=== PATIENT | male | born 1985 | race Caucasian/White ===

== ENCOUNTER 2016-09-05 16:39 | Emergency (ER) | payer SELFPAY ==
[~2016-09-05] VITALS: Ht 167.6 cm; Wt 78.8 kg
[~2016-09-05 16:39] MED LIST: ACET325T14 PO; ALPR-475 PO; FLUO20CA19 PO; HYDR-3240 PO; HYDR25CA PO; IBUP200T48 PO; PROC25SU25 PR
[2016-09-05 16:43] VITALS: BP 119/81
[2016-09-05] MEDS ORDERED: SODIUM CHLORIDE FLUSH 10ML SYR IVF ONE (19:00)
[2016-09-05] MEDS ORDERED: CLINDAMYCIN PMX 900MG/50ML 50 ML IV ONE (19:00)
== END 2016-09-05 19:20 | disposition home or self-care (01) ==
LOC: ED 19:12
DX: S92.411A Displaced fracture of proximal phalanx of right great toe, initial encounter for closed fracture (principal); S80.211A Abrasion, right knee, initial encounter; L03.115 Cellulitis of right lower limb; V03.19XA Pedestrian with other conveyance injured in collision with car, pick-up truck or van in traffic accident, initial encounter; Y93.89 Activity, other specified; Y92.89 Other specified places as the place of occurrence of the external cause; Y99.8 Other external cause status
CPT/HCPCS: 99284

== ENCOUNTER 2016-10-01 08:58 | Emergency (ER) | payer SELFPAY ==
[~2016-10-01] VITALS: Ht 167.6 cm; Wt 76.0 kg
[2016-10-01] MEDS ORDERED: SODIUM CHLORIDE 0.9% 1,000ML IVBOLUS ONE (10:00)
[2016-10-01] MEDS ORDERED: POTASSIUM CHLORIDE 10% 40 MEQ/30 ML UDC PO ONE (10:00)
[2016-10-01 10:29] VITALS: BP 136/90
== END 2016-10-01 12:47 | disposition home or self-care (01) ==
LOC: ED 09:16
DX: F10.10 Alcohol abuse, uncomplicated (principal); F15.129 Other stimulant abuse with intoxication, unspecified; E86.0 Dehydration; E87.6 Hypokalemia
CPT/HCPCS: 36415; 80047; 96360; 99284; J7030

== ENCOUNTER 2017-04-22 05:50 | Emergency (ER) | payer MEDICAID ==
[~2017-04-22] VITALS: Ht 167.6 cm; Wt 77.0 kg
[~2017-04-22 05:50] MED LIST changes: -IBUP200T48 PO; +IBUP200T49 PO
[2017-04-22 05:52] VITALS: BP 134/91
== END 2017-04-22 06:31 | disposition home or self-care (01) ==
LOC: ED 06:15
DX: F41.1 Generalized anxiety disorder (principal)
CPT/HCPCS: 99284

== ENCOUNTER 2017-04-27 02:39 | Emergency (ER) | payer MEDICAID ==
[~2017-04-27] VITALS: Ht 167.6 cm; Wt 70.9 kg
[2017-04-27 02:40] VITALS: BP 120/90
== END 2017-04-27 04:24 | disposition home or self-care (01) ==
LOC: ED 03:01
DX: F41.1 Generalized anxiety disorder (principal); F15.10 Other stimulant abuse, uncomplicated; F10.129 Alcohol abuse with intoxication, unspecified; F32.9 Major depressive disorder, single episode, unspecified; F41.0 Panic disorder [episodic paroxysmal anxiety]
CPT/HCPCS: 99284

== ENCOUNTER 2017-04-27 23:45 | Emergency (ER) | payer BC, MEDICAID ==
[~2017-04-27] VITALS: Ht 167.6 cm; Wt 69.9 kg
[2017-04-27 23:55] VITALS: BP 136/94
== END 2017-04-28 00:27 | disposition home or self-care (01) ==
LOC: ED 04-28 00:18
DX: F41.1 Generalized anxiety disorder (principal); F32.9 Major depressive disorder, single episode, unspecified; F15.10 Other stimulant abuse, uncomplicated
CPT/HCPCS: 99284

== ENCOUNTER 2018-03-17 03:30 | Emergency (ER) | payer MEDICAID ==
[~2018-03-17] VITALS: Ht 167.6 cm; Wt 72.9 kg
[2018-03-17 05:37] VITALS: BP 125/78
== END 2018-03-17 05:38 | disposition home or self-care (01) ==
LOC: ED 03:54
DX: F15.10 Other stimulant abuse, uncomplicated (principal); Z72.9 Problem related to lifestyle, unspecified; R06.02 Shortness of breath; F17.200 Nicotine dependence, unspecified, uncomplicated
CPT/HCPCS: 99281

== ENCOUNTER 2018-04-28 13:45 | Emergency (ER) | payer MEDICAID ==
[~2018-04-28] VITALS: Ht 167.6 cm; Wt 68.0 kg
[2018-04-28] MEDS ORDERED: LORazepam 1MG TABLET ONE (14:17)
[2018-04-28] MEDS ORDERED: LORazepam 1MG TABLET PO ONE (14:30)
--- NOTE | 2018-04-28 14:47 | NUR ---
Recieved report from COURTNEY Reed. All questions answered. First contact with pt. Pt requesting, "Can I get my abilify, for my mental health problems. I relapsed on meth. I did it two days ago, maybe yesterday morning, it was cut with something. I have thoughts of wanting to hurt other people, not myself. I get paranoid and hallucinate and think people are messing with me and out to get me and I start fights with other people. I am bryson feeling like that now. I don't want to go outside when it is dark and start fights with others."
[2018-04-28] MEDS ORDERED: ZIPRASIDONE 20MG CAPSULE PO STA (14:57)
--- NOTE | 2018-04-28 15:00 | NUR ---
ED MD aware of pt's expressed thoughts of wanting to harm others.
[2018-04-28] MEDS ORDERED: ZIPRASIDONE 20MG CAPSULE ONE (15:01)
--- NOTE | 2018-04-28 15:05 | NUR ---
Provided pt medication per EMAR. Pt pacing room and states he feels agitated. Pt provided water. Pt poured out water provided and got water from room sink. Pt took medication by mouth when provided.
--- NOTE | 2018-04-28 16:37 | NUR ---
Pt states, "The medication helped my anxiety a little but I am still having paranoid thoughts and hallucinating and wanting to hurt others. I don't have a plan of hurting myself. In the past I have tried to kill myself by overdosing."
--- NOTE | 2018-04-28 16:38 | NUR ---
Provided report to COURTNEY Barcenas. Pt transfering from ED 16 to ED 41. All questions answered. Pt ambulates with steady gait and balance to new ED room 41.
--- NOTE | 2018-04-28 16:52 | NUR ---
ASSUMED CARE FROM WES VALDEZ. PT IN BED. JOSEPHINE. HAS SITTER OUTSIDE ROOM FOR CONTINOUS MONITORING.
[2018-04-28 16:57] LABS: BASOPHILS # (AUTO) 0.02 x10^3/uL (0-0.1); BASOPHILS % (AUTO) 0 % (0-1); EOSINOPHILS # (AUTO) 0.02 x10^3/uL (0-0.4); EOSINOPHILS % (AUTO) 0 % (1-7); LYMPHOCYTES # (AUTO) 1.18 x10^3/uL (1-3.4); LYMPHOCYTES % (AUTO) 13 % (22-44); MD NO; MEAN CORPUSCULAR HEMOGLOBIN 30.9 pg (27.5-34.5); MEAN CORPUSCULAR HGB CONC 34.2 g/dL (33.2-36.2); MEAN CORPUSCULAR VOLUME 90.2 fL (81-97); MEAN PLATELET VOLUME 8.3 fL (7.4-10.4); MONOCYTES # (AUTO) 0.62 x10^3/uL (0.2-0.8); MONOCYTES % (AUTO) 7 % (2-9); NEUTROPHILS # (AUTO) 7.08 x10^3/uL (1.8-6.8); NEUTROPHILS % (AUTO) 79 % (42-75); PLATELET COUNT 265 x10^3/uL (130-400); RED BLOOD COUNT 5.22 x10^6/uL (4.38-5.82); RED CELL DISTRIBUTION WIDTH 13.5 % (9.4-14.8)
[2018-04-28 17:04] LABS: ALBUMIN 4.3 g/dL (3.4-5.0); ANION GAP 13 mmol/L (5-15); CALCIUM 8.9 mg/dL (8.5-10.1); CHLORIDE 102 mmol/L (98-107)
[2018-04-28 17:10] LABS: ACETAMINOPHEN < 2 mcg/mL (10-30); SALICYLATE LEVEL < 1.7 mg/dL (2.8-20.0)
--- NOTE | 2018-04-28 17:48 | NUR ---
PT RESTING IN BED, NADN. PT VSS AND EQUAL CHEST RISE WITH GOOD CAP REFILL. SITTER OUTSIDE FOR CONTINOUS SAFETY MONITORING.
--- NOTE | 2018-04-28 18:57 | NUR ---
PT UNABLE TO PROVIDE UA AT THIS TIME.
--- NOTE | 2018-04-28 19:19 | NUR ---
RECEIVED REPORT FROM KIRSTEN VALDEZ
--- NOTE | 2018-04-28 19:23 | NUR ---
PT RESTING IN BED WITH BLANKET OVER HEAD. NAD NOTED AT THIS TIME. PT IS MOVING IN BED. SITTER AT DOOR FOR FREQUENT OBS.
--- NOTE | 2018-04-28 20:00 | NUR ---
PT RESTING IN BED WITH EYES CLOSED. NO STATED NEEDS, SITTER AT DOOR FOR OBS.
--- NOTE | 2018-04-28 21:07 | NUR ---
PT CONTINUE TO REST IN BED CALMLY WITH EYES CLOSED. SITTER AT DOOR.
--- NOTE | 2018-04-28 22:30 | NUR ---
PT RESTING IN BED WITH EYES CLOSED. RESP EVEN AND NON LABORED. NO STATED NEEDS AT THIS TIME. SITTER AT DOOR FOR FREQUENT OBS.
--- NOTE | 2018-04-28 23:01 | NUR ---
PT RESTING IN BED, NO STATED NEEDS. RESP EVEN AND NON LABORED. SITTER AT DOOR.
--- NOTE | 2018-04-29 00:05 | NUR ---
PT CONTINUES TO REST IN BED WITH BLANKET OVER HEAD. NO STATED NEEDS AT THIS TIME. SITTER AT DOOR.
--- NOTE | 2018-04-29 01:18 | NUR ---
BREAK RN. PT RESTING CALMLY, NADN, EQUAL CHEST RISE/FALL OBSERVED, SITTER AT DOORWAY FOR CONTINOUS MONITORING.
--- NOTE | 2018-04-29 02:03 | NUR ---
PT RESTING IN BED WITH SHEET OVER HEAD. PT REST EVEN AND NON LABORED. SITTER AT DOOR.
--- NOTE | 2018-04-29 03:20 | NUR ---
PT UP TO VOID, PROVIDED URINE SAMPLE. VITALS DONE, SEE CHARTED. NO STATED NEEDS FROM PT. PERFORMED SI REASSESSMENT. PT STATED LATELY HE HAS BEEN DOING A LOT OF METH AND HAVING HALLUCINATIONS AND DEPRESSION WHICH HAS BEEN CAUSING HIS SI. PT STATED HIS PLAN WOULD BE TO OVERDOSE ON HIS ANTIPSYCHOTIC MEDS THAT HE HAS AT HOME. PT STATED HE HAS ATTEMPTED SI IN THE PAST BY OD. PT BACK IN BED WITH BLANKET OVER HEAD. SITTER REMAINS AT DOOR.
[2018-04-29 03:35] LABS: AMPHETAMINE SCREEN, URINE Positive (Negative); BARBITURATE SCREEN, URINE Negative (Negative); BENZODIAZEPINE SCREEN, URINE Negative (Negative); CANNABINOID SCREEN, URINE Negative (Negative); COCAINE SCREEN, URINE Negative (Negative); METHADONE SCREEN, URINE Negative (Negative); OPIATE SCREEN, URINE Negative (Negative)
--- NOTE | 2018-04-29 04:06 | NUR ---
[facility] CONTACTED FOR MOBILE ASSESSMENT. PT INFO FAXED TO PROVIDED NUMBER BY [facility] BOWLING BALL MOLD ASSEMBLER. PT REMAINS IN BED WITH SHEET OVER HEAD. PT AROUSES EASILY. SITTER AT DOOR.
--- NOTE | 2018-04-29 05:31 | NUR ---
PT RESTING IN BED. NO NEEDS AT THIS ROSA. SITTER AT DOOR FOR OBS.
--- NOTE | 2018-04-29 06:47 | NUR ---
PT RESTING IN BED WITH BLANKET OVER HEAD. REPORT TO BHUMI VALDEZ. SITTER AT DOOR.
--- NOTE | 2018-04-29 06:53 | NUR ---
PT MOTHER: BETH [phone] STATES IS PT AT [facility] DR FUNG MEDICATIONS FILL[facility]
[2018-04-29 07:17] VITALS: BP 120/84
--- NOTE | 2018-04-29 08:13 | NUR ---
THROUGHPUT RN: [facility] AT BEDSIDE.
--- NOTE | 2018-04-29 08:16 | NUR ---
PT RESTING IN ROOM WITH BLANKET OVER HEAD. SITTER IN JJ
--- NOTE | 2018-04-29 09:21 | NUR ---
THROUGHPUT RN: PACKET FAXED TO [facility], [facility], AND [facility].
--- NOTE | 2018-04-29 09:25 | NUR ---
PT RESTING IN BED. ALL OF BREAKFAST WAS CONSUMED.
--- NOTE | 2018-04-29 09:51 | NUR ---
SPOKE WITH MARIBELL VALDEZ AT [facility]. WILL BE ACCEPTING PT PER DR BRANCH. THROUGHPUT NOTIFIED.
== END 2018-04-29 11:27 ==
LOC: ED 17:26
DX: F23 Brief psychotic disorder (principal); F22 Delusional disorders; R45.851 Suicidal ideations; F15.10 Other stimulant abuse, uncomplicated; F32.9 Major depressive disorder, single episode, unspecified; F41.1 Generalized anxiety disorder
CPT/HCPCS: 36415; 80048; 80307; 80329; 82040; 85025; 93005; 99285; G0480

== ENCOUNTER 2019-06-12 23:36 | Emergency (ER) | payer MEDICAID ==
[~2019-06-12] VITALS: Ht 167.6 cm; Wt 61.7 kg
[~2019-06-12 23:36] MED LIST changes: -ALPR-475 PO; +ALPR0.5T7 PO
[2019-06-12 23:44] VITALS: BP 100/75
--- NOTE | 2019-06-13 01:31 | NUR ---
Pt calling 911 from lobby, CARMELA talking with pt in lobby.
== END 2019-06-13 02:17 | disposition left against medical advice (07) ==
LOC: ED 06-13 02:11
DX: F15.10 Other stimulant abuse, uncomplicated (principal)
CPT/HCPCS: 99283

== ENCOUNTER 2019-06-15 02:51 | Emergency (ER) | payer MEDICAID ==
[~2019-06-15] VITALS: Ht 167.6 cm; Wt 63.0 kg
--- NOTE | 2019-06-15 03:29 | NUR ---
REPORT FROM COURTNEY SO. PT SITTING UP IN RREVERE, AWAKE/ALERT, CALM AND COOPERATIVE. DENIES NEEDS AT THIS TIME. ROOM SECURE. NO BELONGINGS NOTED IN ROOM. ALL BELONGINGS IN BAGS (1) BY COURTNEY SO AND IN LOCKER.
[2019-06-15 03:37] LABS: BASOPHILS # (AUTO) 0.02 x10^3/uL (0-0.1); BASOPHILS % (AUTO) 0 % (0-1); EOSINOPHILS # (AUTO) 0.13 x10^3/uL (0-0.4); EOSINOPHILS % (AUTO) 2 % (1-7); LYMPHOCYTES # (AUTO) 1.26 x10^3/uL (1-3.4); LYMPHOCYTES % (AUTO) 19 % (22-44); MD NO; MEAN CORPUSCULAR HEMOGLOBIN 30.8 pg (27.5-34.5); MEAN CORPUSCULAR HGB CONC 33.6 g/dL (33.2-36.2); MEAN CORPUSCULAR VOLUME 91.6 fL (81-97); MONOCYTES # (AUTO) 0.47 x10^3/uL (0.2-0.8); MONOCYTES % (AUTO) 7 % (2-9); NEUTROPHILS # (AUTO) 4.91 x10^3/uL (1.8-6.8); NEUTROPHILS % (AUTO) 72 % (42-75); PLATELET COUNT 386 x10^3/uL (130-400); RED BLOOD COUNT 4.42 x10^6/uL (4.38-5.82); RED CELL DISTRIBUTION WIDTH 13.1 % (9.4-14.8)
[2019-06-15 03:44] LABS: ALANINE AMINOTRANSFERASE 32 U/L (12-78); ALBUMIN 3.1 g/dL (3.4-5.0); ANION GAP 7 mmol/L (5-15); CALCIUM 8.3 mg/dL (8.5-10.1); CHLORIDE 107 mmol/L (98-107); CREATININE 0.96 mg/dL (0.7-1.3)
[2019-06-15 03:45] LABS: AMPHETAMINE SCREEN, URINE Positive (Negative); BARBITURATE SCREEN, URINE Negative (Negative); BENZODIAZEPINE SCREEN, URINE Negative (Negative); CANNABINOID SCREEN, URINE Negative (Negative); COCAINE SCREEN, URINE Negative (Negative); METHADONE SCREEN, URINE Negative (Negative); OPIATE SCREEN, URINE Negative (Negative)
[2019-06-15 03:46] LABS: ALKALINE PHOSPHATASE 120 U/L (45-117); SALICYLATE LEVEL < 1.7 mg/dL (2.8-20.0); TOTAL PROTEIN 7.1 g/dL (6.4-8.2)
[2019-06-15 03:49] LABS: BILIRUBIN,TOTAL < 0.1 mg/dL (0.2-1.0)
--- NOTE | 2019-06-15 03:57 | NUR ---
Rn to bedside, midlevel provider to bedside. Patient denies medical complaint. RN transferred patient into room 40, patient informed for psychiatric follow up patient would need to provide a urine sample. Patient hesitant but agreeable. Patient ambulated steadily to bathroom, urine sample provide and patient back into room. RN dropped doors and locked them. Machine Umbrella Tipper to bedside, patient again hesitant for laboratory draws, but patient agreeable. This RN then gave report to primary RN. Informed of patient's SI status, single labled bag placed in locker.
[2019-06-15] MEDS ORDERED: ZIPRASIDONE 20 MG INJ IM ONE (04:00)
--- NOTE | 2019-06-15 04:20 | NUR ---
MANDIE ORDER HELD PT IS RESTING CALMLY IN [facility]. CHART UP FOR RECHECK
--- NOTE | 2019-06-15 05:00 | NUR ---
POC IS TELEPSYCH CONSULT. TELE MONITOR AT BEDSIDE. AWAITING CONSULT. PT REMAINS CALM/COOPERATIVE
--- NOTE | 2019-06-15 06:20 | NUR ---
PT SITTING UP IN GURNEY, AWAKE/ALERT, REMAINS CALM. AWAITING TELEPSYCH CONSULT
--- NOTE | 2019-06-15 06:25 | NUR ---
REPORT TO SOC PSYCH .
--- NOTE | 2019-06-15 06:42 | NUR ---
SOC CONSULT UNDERWAY. PT COOPERATIVE
--- NOTE | 2019-06-15 07:01 | NUR ---
REPORT TO COURTNEY SHEPARD
--- NOTE | 2019-06-15 08:37 | NUR ---
pt resting in bed. sitter at door at this time. no stated needs at this time. will continue to monitor. pt placed on hold
--- NOTE | 2019-06-15 09:02 | NUR ---
PT RESTING CALMLY IN BED WITH EYES CLOSED. NO STATED NEEDS CURRENTLY. WILL CONTINUE TO MONITOR. BREAKFAST ORDERED FOR PT.
--- NOTE | 2019-06-15 10:48 | NUR ---
PT CONTINUES TO REST IN BED WITH EYES CLOSED. NO STATED NEEDS AT THIS TIME. WILL CONTINUE TO MONITOR. SITTER AT BEDSIDE.
--- NOTE | 2019-06-15 11:19 | NUR ---
PT CONTINUES TO REST CALMLY IN BED. NO STATED NEEDS CURRENTLY. SITTER AT DOOR. PT RESPIRATIONS ARE EVEN AND NON LABORED.
[2019-06-15 12:01] VITALS: BP 109/77
--- NOTE | 2019-06-15 12:05 | NUR ---
PT AWAKE AND COOPERATIVE WITH VITALS AND ASSESSMENTS. PT STATED HE STILL FEELS, "LIKE PEOPLE ARE CONTROLLING MY THOUGHS." STATED, "I BEEN THINKING OF JUST RUNNING OUT OF HERE AND FINDING A TALL BUILDING AND JUST JUMPING OFF." PT STATED HE ATTEMPTED SUICIDE BEOFRE BY INGESTING LOTS OF MEDICATION. PT STATED WHEN HE TAKES HIS PRESCRIBED SEROQUEL, PROZAC AND WELLBUTRIN HE FEELS A LITTLE BETTER, BUT STILL HAS THE THOUGHTS. PT STATED HEWAS TAKING HIS PRESCRIBED MEDS HERE AND THERE. PT HAS BEEN CALM AND COOPERATIVE AT THIS POINT. LUNCH HAS BEEN ORDERED. SITTER AT DOOR. VSS, WILL CONTINUE TO MONITOR. PT DENIES ANY PAIN OR NEW SYMPTOMS OF ILLNESS.
--- NOTE | 2019-06-15 13:36 | NUR ---
SITTER AT DOOR NO OTHER NEEDS AT THIS TIME
--- NOTE | 2019-06-15 14:20 | NUR ---
PT RESTING CALMLY IN BED AT THIS TIME. SITTER AT DOOR. NO STATED NEEDS FROM PT.
--- NOTE | 2019-06-15 15:30 | NUR ---
PT RESTING IN BED. SITTER AT DOOR.
--- NOTE | 2019-06-15 16:53 | NUR ---
P HAS BEEN RESTING CALMLY IN BED. SITTER AT DOOR. PT GOING UP TO [facility] BY WHEELCHAIR. REPORT HAS BEEN GIVEN TO ORALIA VALDEZ.
[2019-06-16] MEDS ORDERED: OLAN10TA3 PO (12:31)
[2019-06-16] MEDS ORDERED: TRAZ-175 PO (12:32)
== END 2019-06-15 16:56 ==
LOC: ED 05:19
DX: F15.151 Other stimulant abuse with stimulant-induced psychotic disorder with hallucinations (principal); F17.290 Nicotine dependence, other tobacco product, uncomplicated; Z72.9 Problem related to lifestyle, unspecified
CPT/HCPCS: 36415; 80053; 80307; 85025; 99285; 99406

== ENCOUNTER 2019-06-15 15:51 | Inpatient (IN) | payer MEDICAID ==
[~2019-06-15] VITALS: Ht 167.6 cm; Wt 65.9 kg
[2019-06-15] MEDS ORDERED: POLYETHYLENE GLYCOL 17 GM PACKET PO PRN (16:30)
[2019-06-15] MEDS ORDERED: DOCUSATE 100 MG CAPSULE PO PRN (16:30)
[2019-06-15] MEDS ORDERED: ONDANSETRON ODT 4 MG PO PRN (16:30)
[2019-06-15] MEDS ORDERED: BISACODYL 10 MG SUPP PR PRN (16:30)
[2019-06-15 17:00] VITALS: BP 113/65
[2019-06-15] MEDS ORDERED: NICOTINE 14MG/24 HR PATCH.TD24 TD SCH (18:00)
[2019-06-15 18:09] VITALS: BP 113/65
[2019-06-15] MEDS ORDERED: FLU VACC QS2019-20 36MOS UP/PF 0.5 ML IM-VACC ONE (19:00)
[2019-06-15 19:47] VITALS: BP 103/71
[2019-06-15] MEDS: ACETAMINOPHEN 325 MG TABLET PO PRN (21:18)
[2019-06-16 07:43] LABS: BASOPHILS # (AUTO) 0.02 x10^3/uL (0-0.1); BASOPHILS % (AUTO) 0 % (0-1); EOSINOPHILS # (AUTO) 0.13 x10^3/uL (0-0.4); EOSINOPHILS % (AUTO) 2 % (1-7); LYMPHOCYTES # (AUTO) 1.12 x10^3/uL (1-3.4); LYMPHOCYTES % (AUTO) 16 % (22-44); MD NO; MEAN CORPUSCULAR HEMOGLOBIN 30.8 pg (27.5-34.5); MEAN CORPUSCULAR HGB CONC 33.2 g/dL (33.2-36.2); MEAN CORPUSCULAR VOLUME 92.7 fL (81-97); MEAN PLATELET VOLUME 7.7 fL (7.4-10.4); MONOCYTES # (AUTO) 0.41 x10^3/uL (0.2-0.8); MONOCYTES % (AUTO) 6 % (2-9); NEUTROPHILS # (AUTO) 5.17 x10^3/uL (1.8-6.8); NEUTROPHILS % (AUTO) 76 % (42-75); PLATELET COUNT 366 x10^3/uL (130-400); RED BLOOD COUNT 4.56 x10^6/uL (4.38-5.82); RED CELL DISTRIBUTION WIDTH 12.9 % (9.4-14.8)
[2019-06-16 07:44] VITALS: BP 117/80
[2019-06-16 07:57] LABS: ALBUMIN 2.9 g/dL (3.4-5.0); ANION GAP 6 mmol/L (5-15); CALCIUM 8.1 mg/dL (8.5-10.1); CHLORIDE 108 mmol/L (98-107)
[2019-06-16 08:25] LABS: ALANINE AMINOTRANSFERASE 29 U/L (12-78); ALKALINE PHOSPHATASE 98 U/L (45-117); BILIRUBIN,TOTAL 0.3 mg/dL (0.2-1.0); CHOLESTEROL, TOTAL 112 mg/dL (140-239); CREATININE 0.84 mg/dL (0.7-1.3); FREE T4 (FREE THYROXINE) 1.12 ng/dL (0.76-1.46); HDL CHOL % 50 % (26-37); HDL CHOLESTEROL (DIRECT) 56 mg/dL (40-60); LDL CHOLESTEROL,CALCULATED 40 mg/dL (54-169); LDL/HDL RATIO 0.7 (0.5-3.0); TOTAL PROTEIN 6.7 g/dL (6.4-8.2); TRIGLYCERIDES 79 mg/dL (50-200); VLDL CHOLESTEROL 16 mg/dL (0-25)
[2019-06-16 08:47] LABS: MICROSCOPIC NOT IND
[2019-06-16 08:48] LABS: CULTURE INDICATED? NO
[2019-06-16] MEDS: ACETAMINOPHEN 325 MG TABLET PO PRN (10:50)
[2019-06-16] MEDS: GUAIFENESIN 200 MG TABLET PO SCH ×3 (11:37→20:34)
[2019-06-16] MEDS ORDERED: OLAN10TA3 PO (12:31)
[2019-06-16] MEDS ORDERED: TRAZ-175 PO (12:32)
[2019-06-16 15:36] LABS: RAPID INFLUENZA A Negative (Negative); RAPID INFLUENZA B Negative (Negative)
[2019-06-16 19:47] VITALS: BP 110/71
[2019-06-16] MEDS: QUETIAPINE 100MG TABLET PO SCH (20:34)
[2019-06-17] MEDS: GUAIFENESIN 200 MG TABLET PO SCH ×4 (05:55→21:02)
[2019-06-17 07:17] VITALS: BP 104/69
[2019-06-17] MEDS: BUPROPION SR 150 MG TABLET PO SCH (08:53)
[2019-06-17 19:40] VITALS: BP 104/74
[2019-06-17] MEDS: QUETIAPINE 100MG TABLET PO SCH (21:03)
[2019-06-18] MEDS: GUAIFENESIN 200 MG TABLET PO SCH ×4 (05:59→20:47)
[2019-06-18 07:59] VITALS: BP 104/74
[2019-06-18] MEDS: BUPROPION SR 150 MG TABLET PO SCH ×2 (08:10→13:23)
[2019-06-18 19:13] VITALS: BP 96/64
[2019-06-18] MEDS: QUETIAPINE 100MG TABLET PO SCH (20:48)
[2019-06-19] MEDS: GUAIFENESIN 200 MG TABLET PO SCH ×4 (05:23→20:58)
[2019-06-19 07:41] VITALS: BP 118/74
[2019-06-19] MEDS: BUPROPION SR 150 MG TABLET PO SCH ×2 (08:40→11:59)
[2019-06-19] MEDS: FLUOXETINE HCL 20 MG CAPSULE PO SCH (08:41)
[2019-06-19 19:22] VITALS: BP 108/75
[2019-06-19] MEDS: QUETIAPINE 100MG TABLET PO SCH (20:58)
[2019-06-20] MEDS: GUAIFENESIN 200 MG TABLET PO SCH ×4 (06:22→20:24)
[2019-06-20 07:27] VITALS: BP 95/57
[2019-06-20] MEDS: FLUOXETINE HCL 20 MG CAPSULE PO SCH (08:59)
[2019-06-20] MEDS: BUPROPION SR 150 MG TABLET PO SCH ×2 (08:59→12:13)
[2019-06-20 19:22] VITALS: BP 114/79
[2019-06-20] MEDS: QUETIAPINE 100MG TABLET PO SCH (20:24)
[2019-06-21] MEDS: GUAIFENESIN 200 MG TABLET PO SCH ×4 (05:37→20:33)
[2019-06-21 07:30] VITALS: BP 101/68
[2019-06-21] MEDS: FLUOXETINE HCL 20 MG CAPSULE PO SCH (08:06)
[2019-06-21] MEDS: BUPROPION SR 150 MG TABLET PO SCH ×2 (08:06→11:07)
[2019-06-21 19:00] VITALS: BP 110/68
[2019-06-21] MEDS: QUETIAPINE 100MG TABLET PO SCH (20:34)
[2019-06-22] MEDS: GUAIFENESIN 200 MG TABLET PO SCH ×4 (05:32→20:51)
[2019-06-22 07:15] VITALS: BP 92/60
[2019-06-22] MEDS: BUPROPION SR 150 MG TABLET PO SCH ×2 (08:07→11:41)
[2019-06-22] MEDS: FLUOXETINE HCL 20 MG CAPSULE PO SCH (08:07)
[2019-06-22] MEDS ORDERED: FLUO20CA23 PO (13:35)
[2019-06-22] MEDS ORDERED: BUPR150T73 PO (13:35)
[2019-06-22] MEDS ORDERED: QUET100T PO (13:35)
[2019-06-22 19:32] VITALS: BP 110/74
[2019-06-22] MEDS: QUETIAPINE 100MG TABLET PO SCH (20:51)
[2019-06-23] MEDS: GUAIFENESIN 200 MG TABLET PO SCH ×2 (06:15→11:05)
[2019-06-23 07:10] VITALS: BP 100/68
[2019-06-23] MEDS: FLUOXETINE HCL 20 MG CAPSULE PO SCH (08:43)
[2019-06-23] MEDS: BUPROPION SR 150 MG TABLET PO SCH ×2 (08:43→11:05)
== END 2019-06-23 11:20 | disposition home or self-care (01) | DRG 885 ==
LOC: 3E 17:50
PROVIDERS: ADMIT Psychiatry & Neurology Psychosomatic Medicine; ATTEND Psychiatry & Neurology Psychosomatic Medicine
DX: F25.1 Schizoaffective disorder, depressive type (principal); F15.20 Other stimulant dependence, uncomplicated; R45.851 Suicidal ideations; F23 Brief psychotic disorder; Z79.899 Other long term (current) drug therapy; F17.210 Nicotine dependence, cigarettes, uncomplicated; Z20.828 Contact with and (suspected) exposure to other viral communicable diseases
CPT/HCPCS: 36415; 80053; 80061; 81003; 82140; 82607; 84439; 84443; 85025; 86592; 87081; 87400; 87880; 90686; 93005

== ENCOUNTER 2019-09-01 22:07 | Emergency (ER) | payer MEDICAID ==
[~2019-09-01] VITALS: Ht 167.6 cm; Wt 61.0 kg
[~2019-09-01 22:07] MED LIST changes: +BUPR150T73 PO; +FLUO20CA23 PO; +OLAN10TA3 PO; +QUET100T PO; +TRAZ-175 PO
--- NOTE | 2019-09-01 22:10 | NUR ---
Pt escorted to room 1, pt changed into gown and belongings placed in locker. Pt states he feels like the last few days have been a blur and is suicidal. Pt states he once attempted to overdose in 2016 and would attempt to do it again. Pt resp even and unlabored, a&ox4.
[2019-09-01 23:00] LABS: BASOPHILS # (AUTO) 0.03 x10^3/uL (0-0.1); BASOPHILS % (AUTO) 0 % (0-1); EOSINOPHILS # (AUTO) 0.11 x10^3/uL (0-0.4); EOSINOPHILS % (AUTO) 2 % (1-7); LYMPHOCYTES % (AUTO) 33 % (22-44); MD NO; MEAN CORPUSCULAR HEMOGLOBIN 29.5 pg (27.5-34.5); MEAN CORPUSCULAR HGB CONC 33.5 g/dL (33.2-36.2); MEAN CORPUSCULAR VOLUME 87.8 fL (81-97); MEAN PLATELET VOLUME 8.2 fL (7.4-10.4); MONOCYTES # (AUTO) 0.39 x10^3/uL (0.2-0.8); MONOCYTES % (AUTO) 7 % (2-9); NEUTROPHILS # (AUTO) 3.37 x10^3/uL (1.8-6.8); NEUTROPHILS % (AUTO) 58 % (42-75); PLATELET COUNT 254 x10^3/uL (130-400); RED BLOOD COUNT 4.42 x10^6/uL (4.38-5.82); RED CELL DISTRIBUTION WIDTH 16.1 % (9.4-14.8)
[2019-09-01 23:04] LABS: ALBUMIN 3.3 g/dL (3.4-5.0); ANION GAP 8 mmol/L (5-15); CALCIUM 8.3 mg/dL (8.5-10.1); CHLORIDE 107 mmol/L (98-107); CREATININE 1.05 mg/dL (0.7-1.3)
[2019-09-01 23:06] LABS: SALICYLATE LEVEL < 1.7 mg/dL (2.8-20.0)
--- NOTE | 2019-09-02 00:10 | NUR ---
Pt resting in room, unable to provide urine sample at this time. Resp even and unlabored. Sitter in direct line of sight of patient.
--- NOTE | 2019-09-02 00:39 | NUR ---
TASK RN: PT RESTING IN [facility] EYES CLOSED. EVEN/REGULAR RESPIRATIONS NOTED. SITTER PRESENT, ROOM SECURE. NO PERSONAL BELONGINGS NOTED IN ROOM.
--- NOTE | 2019-09-02 02:17 | NUR ---
Pt speaking to telepsych
[2019-09-02 04:38] LABS: MICROSCOPIC NOT IND
[2019-09-02 04:52] LABS: AMPHETAMINE SCREEN, URINE Positive (Negative); BARBITURATE SCREEN, URINE Negative (Negative); BENZODIAZEPINE SCREEN, URINE Positive (Negative); CANNABINOID SCREEN, URINE Negative (Negative); COCAINE SCREEN, URINE Negative (Negative); METHADONE SCREEN, URINE Negative (Negative); OPIATE SCREEN, URINE Negative (Negative)
--- NOTE | 2019-09-02 05:42 | NUR ---
CASHIER OR CHECKER STOCK CLERK: PACKET WAS FAXED TO [facility], [facility], AND [facility]. CONFIRMATION FAX RECEIVED BACK. PT. NEEDED PRIOR AUTH FOR [facility]. DESIRE FROM [facility] CALLED AND REPORTED THAT DR. FIGUEROA WOULD BE ACCEPTING THIS PT. AND TRANSPORT COULD BE SET FOR 0930 THIS AM.
--- NOTE | 2019-09-02 06:51 | NUR ---
report from ekaterina
[2019-09-02 07:05] VITALS: BP 110/72
--- NOTE | 2019-09-02 07:07 | NUR ---
VSS, PT STATES HE "JUST WOKE UP, BUT STILL HAS THOUGHTS OF KILLING HIMSELF". \\\\ MEAL TRAY ORDERED
--- NOTE | 2019-09-02 08:01 | NUR ---
SPOKE WITH NAHOMI TO CANCEL TRANSFER
--- NOTE | 2019-09-02 08:06 | NUR ---
MEAL TRAY GIVEN REPORT TO [facility]
[2019-09-02] MEDS ORDERED: FLUO40CA9 PO (10:24)
== END 2019-09-02 12:33 ==
LOC: ED 09-02 01:13
DX: R45.851 Suicidal ideations (principal); F32.9 Major depressive disorder, single episode, unspecified
CPT/HCPCS: 36415; 80048; 80307; 81003; 82040; 85025; 99285

== ENCOUNTER 2019-09-13 21:16 | Emergency (ER) | payer MEDICAID ==
[~2019-09-13] VITALS: Ht 167.6 cm; Wt 62.2 kg
[~2019-09-13 21:16] MED LIST changes: +FLUO40CA9 PO
--- NOTE | 2019-09-13 21:30 | NUR ---
PT TO ED WITH C/O SA. PT REPORTS HX OF SI. PT AGITATED AND FRUSTRATED. PT REPORTS THAT HE IS SUPPOSED TO BE TAKING PSYCH MEDS BUT NOT COMPLIANT WITH MEDS. REPORTS FEELING SI TODAY AND THEN TOOK PSYCH MEDS BUT UNSURE WHICH KIND OR HOW MANY. REPORTS TO ETOH AND METH USE TODAY.
--- NOTE | 2019-09-13 21:59 | NUR ---
Patient placed in gown. yellow socks given to patient. Patient belongings placed in locker. (2 bags) Urine collected and sent to lab.
[2019-09-13 22:15] LABS: BASOPHILS # (AUTO) 0.02 x10^3/uL (0-0.1); BASOPHILS % (AUTO) 0 % (0-1); EOSINOPHILS # (AUTO) 0.09 x10^3/uL (0-0.4); EOSINOPHILS % (AUTO) 1 % (1-7); LYMPHOCYTES # (AUTO) 1.57 x10^3/uL (1-3.4); LYMPHOCYTES % (AUTO) 18 % (22-44); MD NO; MEAN CORPUSCULAR HEMOGLOBIN 29.5 pg (27.5-34.5); MEAN CORPUSCULAR VOLUME 86.8 fL (81-97); MEAN PLATELET VOLUME 7.9 fL (7.4-10.4); MONOCYTES # (AUTO) 0.77 x10^3/uL (0.2-0.8); MONOCYTES % (AUTO) 9 % (2-9); NEUTROPHILS # (AUTO) 6.57 x10^3/uL (1.8-6.8); NEUTROPHILS % (AUTO) 73 % (42-75); PLATELET COUNT 390 x10^3/uL (130-400); RED BLOOD COUNT 4.64 x10^6/uL (4.38-5.82); RED CELL DISTRIBUTION WIDTH 16.5 % (9.4-14.8)
[2019-09-13 22:22] LABS: ALBUMIN 4.2 g/dL (3.4-5.0); ANION GAP 9 mmol/L (5-15); CHLORIDE 105 mmol/L (98-107)
[2019-09-13] MEDS ORDERED: LORazepam 1MG TABLET ONE (22:25)
[2019-09-13 22:26] LABS: ALANINE AMINOTRANSFERASE 36 U/L (12-78); ALKALINE PHOSPHATASE 122 U/L (45-117); BILIRUBIN,TOTAL 1.1 mg/dL (0.2-1.0); CREATININE 1.35 mg/dL (0.7-1.3); TOTAL PROTEIN 8.4 g/dL (6.4-8.2)
[2019-09-13 22:27] LABS: AMPHETAMINE SCREEN, URINE Positive (Negative); BARBITURATE SCREEN, URINE Negative (Negative); BENZODIAZEPINE SCREEN, URINE Negative (Negative); CANNABINOID SCREEN, URINE Negative (Negative); COCAINE SCREEN, URINE Negative (Negative); METHADONE SCREEN, URINE Negative (Negative); OPIATE SCREEN, URINE Negative (Negative)
[2019-09-13 22:27] LABS: SALICYLATE LEVEL < 1.7 mg/dL (2.8-20.0)
[2019-09-13] MEDS ORDERED: LORazepam 1MG TABLET PO ONE (22:30)
--- NOTE | 2019-09-13 22:51 | NUR ---
PT ASKED FOR FOOD. PT INFORMED THAT FOOD NOT AVAILABLE UNTIL 0000. OFFERED TO GET PT SNACKS. CAME BACK WITH SNACK AND A DRINK AND SITTER REPORTS THAT PT WAS CUSSING AT HER AND THREW HIS CUP OF WATER AT HER. INFORMED PT THAT THIS BEHAVIOR WILL NOT BE TOLERATED. PT STATES "WELL MAYBE YOU SHOULD JUST GOT THEN YOU F B"
[2019-09-13] MEDS ORDERED: FLUO20TA25 PO (23:07)
[2019-09-13] MEDS ORDERED: QUET100T PO (23:07)
--- NOTE | 2019-09-14 01:20 | NUR ---
PROVIDER TO BEDSIDE
--- NOTE | 2019-09-14 02:21 | NUR ---
PT SLEEPING WITH SITTER OUTSIDE ROOM.
--- NOTE | 2019-09-14 02:38 | NUR ---
PROVIDER TO BEDSIDE TO DISCUSS PLAN OF CARE WITH PT. PT MUCH MORE COOPERATIVE WITH STAFF AT THIS TIME. PT REPORTS FEELING BETTER AND MORE RELAXED AFTER ATIVAN. PT REPORTS THAT HE LIVES WITH HIS MOTHER.
[2019-09-14 02:59] VITALS: BP 107/70
== END 2019-09-14 03:01 | disposition home or self-care (01) ==
LOC: ED 23:53
DX: F15.14 Other stimulant abuse with stimulant-induced mood disorder (principal); F10.120 Alcohol abuse with intoxication, uncomplicated; R00.0 Tachycardia, unspecified; Z72.9 Problem related to lifestyle, unspecified; F17.210 Nicotine dependence, cigarettes, uncomplicated; Y90.9 Presence of alcohol in blood, level not specified
CPT/HCPCS: 36415; 80053; 80307; 85025; 99283; 99406